=== PATIENT | male | born 1955 | race American Indian/Alaskan Native ===

== ENCOUNTER 2018-04-23 00:05 | Emergency (ER) | payer BC ==
--- NOTE | 2018-04-23 01:23 | Emergency Department Report ---
HPI - General Chief Complaint: Dizziness Time Seen by Provider: 04/23/18 00:38 - HPI HPI: 62-year-old male presents to the emergency department by EMS from a parking lot of a convenience store after the patient had a "dizzy spell" and fell to his knees. He did not lose consciousness or hit his head. Patient says that he's been having these dizzy spells" for the past 20 years. He says that he has times where his blood pressure was elevated and his heart rate will go down. He is followed by Dr. Joy, cardiology, for these issues. He otherwise has a history of hypertension, previous history of pulmonary embolism and has an IVC Filter. He did not take anything or get anything for his symptoms progress dictation. He denies any chest pain, back pain, shortness of breath, vision change, headache, slurred speech or any neurological deficits. ED Past Medical Hx - Past Medical History Previous Medical History?: Yes Hx Hypertension: Yes Hx Asthma: Yes - Surgical History Past Surgical History?: No - Social History Smoking Status: Never Smoker Substance Use Type: None ED Review of Systems ROS: Stated complaint: LOW HR Other details as noted in HPI Comment: All other systems reviewed and negative Constitutional: denies: chills, fever Eyes: denies: eye pain, eye discharge, vision change ENT: denies: ear pain, throat pain Respiratory: denies: cough, shortness of breath, wheezing Cardiovascular: denies: chest pain, palpitations Gastrointestinal: denies: abdominal pain, nausea, diarrhea Genitourinary: denies: urgency, dysuria Musculoskeletal: arthralgia. denies: back pain Skin: other (left knee abrasions). denies: rash Neurological: other (dizziness). denies: headache Physical Exam - Physical Exam Vital Signs: Vital Signs 04/23/18 04/23/18 00:37 00:54 Temperature 97.8 F 98.3 F Pulse Rate 59 L 53 L Respiratory 16 12 Rate Blood Pressure 108/54 Blood Pressure 125/59 [Left] O2 Sat by Pulse 96 99 Oximetry Physical Exam: GENERAL: The patient is well-developed well-nourished. HENT: Normocephalic. Atraumatic. Patient has moist mucous membranes. EYES: Extraocular motions are intact. Pupils equal reactive to light bilaterally. No nystagmus. NECK: Supple. Trachea is midline. CHEST/LUNGS: Clear to auscultation. There is no respiratory distress noted. HEART/CARDIOVASCULAR: Regular. There is mild bradycardia. There is no murmur. ABDOMEN: Abdomen is soft, nontender. Patient has normal bowel sounds. There is no abdominal distention. SKIN: Skin is warm and dry. NEURO: The patient is awake, alert, and oriented. The patient is cooperative. The patient has no focal neurologic deficits. The patient has normal speech and gait. Cranial nerves II through XII grossly intact. MUSCULOSKELETAL: There is no tenderness or deformity. There is no limitation range of motion. There is no evidence of acute injury. ED Course Vital Signs 04/23/18 04/23/18 00:37 00:54 Temperature 97.8 F 98.3 F Pulse Rate 59 L 53 L Respiratory 16 12 Rate Blood Pressure 108/54 Blood Pressure 125/59 [Left] O2 Sat by Pulse 96 99 Oximetry ED Medical Decision Making - Lab Data Result diagrams: 04/23/18 01:30 04/23/18 01:30 - EKG Data -: EKG Interpreted by Sc EKG shows normal: sinus rhythm (PACs), axis, intervals, QRS complexes (LVH), ST- T waves (T wave inversions to lateral leads) Rate: bradycardia (48 bpm) - EKG Data When compared to previous EKG there are: previous EKG unavailable Interpretation: other (sinus rhythm with PACs, bradycardia at 48 bpm, LVH, T- wave inversions to the lateral leads) - Medical Decision Making The patient presented after he had a episode of dizziness and lightheadedness where he ended up falling to his knees but did not end up having any loss of consciousness. Since he has been in the emergency department he has been awake and alert, in no acute distress. He does not have any focal, motor or sensory deficits and his cranial nerves are intact. EKG was done that does show some lateral T-wave inversions and some bradycardia. However the patient says that he follows with Dr. Joy and is known for having sustained bradycardia and the patient says he has an abnormal-appearing EKG chronically. Patient does not have any chest pain, back pain, shortness of breath. A repeat EKG was done that did not show any change. The rest of the patient's labs were unremarkable including no signs of infection, electrolyte abnormalities and he had a negative troponin. Chest x-ray did not show any pneumonia, pleural effusions, pneumothorax or any other acute processes. The patient was reevaluated multiple times over multiple hours and says that he is feeling well and has remained stable and there is been no further episodes of dizziness or lightheadedness. He was seen ambulatory throughout the emergency department without any instability. He has good follow-up with primary care and cardiology. He has been instructed to follow up with these physicians outpatient but to return to the emergency department immediately with any recurrence of those previous symptoms, development of chest pain or shortness of breath, or with any acute distress. He understands and agrees to the plan. - Differential Diagnosis dysrhythmia, AV block, ME, hypoglycemia Critical Care Time: No Critical care attestation.: If time is entered above; I have spent that time in minutes in the direct care of this critically ill patient, excluding procedure time. ED Disposition Clinical Impression: Dizziness, Near syncope, Bradycardia Disposition: DC-01 TO HOME OR SELFCARE Is pt being admited?: No Condition: Stable Instructions: Bradycardia (ED), Near Syncope (ED), Lightheadedness (ED), Dizziness (ED) Additional Instructions: Please follow-up with your primary care physician and rehab assistant as soon as possible. Return to the emergency department with any further episodes of dizziness, lightheadedness, any development of chest pain or shortness breath, or with any acute distress. Referrals: MARK TOMLINSON MD [Staff Physician] - JOSE MARIA BAÑUELOS MD [Primary Care Provider] - GUSTAVO Time of Disposition: 04:27
[2018-04-23] MEDS ORDERED: TRIPLE ANTIBIOTIC TP ONE (01:31)
[2018-04-23 01:45] LABS: Basophils % (Auto) 0.4 % (0.0-1.8); Eosinophils # (Auto) 0.1 K/mm3 (0.0-0.4); Eosinophils % (Auto) 0.8 % (0.0-4.3); Hematocrit 46.6 % (35.5-45.6); Hemoglobin 15.5 gm/dl (11.8-15.2); Lymphocytes # (Auto) 0.9 K/mm3 (1.2-5.4); Lymphocytes % (Auto) 7.5 % (13.4-35.0); Mean Corpuscular HGB Conc 33 % (32-34); Mean Corpuscular Hemoglobin 30 pg (28-32); Mean Corpuscular Volume 90 fl (84-94); Monocytes # (Auto) 0.6 K/mm3 (0.0-0.8); Monocytes % (Auto) 4.9 % (0.0-7.3); Platelet Count 186 K/mm3 (140-440); Red Blood Count 5.17 M/mm3 (3.65-5.03); Red Cell Distribution Width 13.6 % (13.2-15.2)
[2018-04-23 02:17] LABS: BUN/Creatinine Ratio 13; Blood Urea Nitrogen 16 mg/dL (9-20); Calcium 9.5 mg/dL (8.4-10.2); Hemolysis Index 1
[2018-04-23] MEDS ORDERED: K-DUR PO ONE (02:20)
--- NOTE | 2018-04-23 02:38 | XRay Report ---
FINAL REPORT EXAM: XR CHEST ROUTINE 2V HISTORY: Chest Pain TECHNIQUE: 2 views of the chest. PRIORS: None. FINDINGS: The cardiomediastinal silhouette appears normal. The lungs are clear. The bones and soft tissues are unremarkable. IMPRESSION: No evidence of acute cardiopulmonary disease
[2018-04-23 03:53] VITALS: BP 137/69
== END 2018-04-23 05:02 | disposition home or self-care (01) ==
LOC: ED 00:05
DX: R42 Dizziness and giddiness (principal); R55 Syncope and collapse; R00.1 Bradycardia, unspecified; I10 Essential (primary) hypertension; J45.909 Unspecified asthma, uncomplicated
CPT/HCPCS: 36415; 71046; 80048; 84443; 84484; 85025; 93005; 93010; A6250